=== PATIENT | male | born 1930 | race Caucasian/White ===

== ENCOUNTER 2018-11-25 14:30 | Emergency (ER) | payer OTHER ==
[~2018-11-25] VITALS: Ht 170.2 cm; Wt 90.9 kg
[~2018-11-25 14:30] MED LIST: ACET-2902 PO; ALFU10TA30 PO; AMOX250C4 PO; ASPI81 PO; CLAR500T3 PO; LOPE2 PO; OXYB5TAB PO; PANT40TA25 PO; PERCT PO; RANO500T3 PO; ZOLP5 PO
[2018-11-25 14:49] LABS: GLUCOSE,POINT OF CARE 112 MG/DL (70-110)
[2018-11-25] MEDS ORDERED: OMEP10 PO (14:52)
[2018-11-25] MEDS ORDERED: BACITRACIN 0.9 GM PACKET OINTMENT TP ONE (18:45)
[2018-11-25 19:08] VITALS: BP 120/56
== END 2018-11-25 19:17 | disposition home or self-care (01) ==
LOC: EMS 14:30
DX: S01.81XA Laceration without foreign body of other part of head, initial encounter (principal); S80.02XA Contusion of left knee, initial encounter; S80.01XA Contusion of right knee, initial encounter; H11.32 Conjunctival hemorrhage, left eye; I11.0 Hypertensive heart disease with heart failure; I50.9 Heart failure, unspecified; E78.00 Pure hypercholesterolemia, unspecified; K21.9 Gastro-esophageal reflux disease without esophagitis; Z88.2 Allergy status to sulfonamides; W01.0XXA Fall on same level from slipping, tripping and stumbling without subsequent striking against object, initial encounter; Y93.01 Activity, walking, marching and hiking; Y92.89 Other specified places as the place of occurrence of the external cause; Y99.8 Other external cause status
CPT/HCPCS: 12011; 70450; 70486

== ENCOUNTER 2018-12-28 12:30 | Inpatient (IN) | payer OTHER ==
[~2018-12-28] VITALS: Ht 170.2 cm; Wt 94.4 kg
[~2018-12-28 12:30] MED LIST changes: -AMOX250C4 PO; -ASPI81 PO; -CLAR500T3 PO; +OMEP10 PO; -OXYB5TAB PO; -PANT40TA25 PO; -PERCT PO; -ZOLP5 PO
[2018-12-28] MEDS ORDERED: ATOR40TA28 PO (12:48)
[2018-12-28] MEDS ORDERED: ALBU8.5H8 IH (12:48)
[2018-12-28] MEDS ORDERED: FURO40 PO (12:48)
[2018-12-28] MEDS ORDERED: KDUR10 PO (12:48)
[2018-12-28] MEDS ORDERED: METO-558 PO (12:48)
[2018-12-28] MEDS ORDERED: TICA90TA PO (12:48)
[2018-12-28] MEDS ORDERED: MAGOX PO (12:48)
[2018-12-28] MEDS ORDERED: ASPI81 PO (12:48)
[2018-12-28] MEDS ORDERED: ASPIRIN 81 MG CHEWABLE TABLET PO ONE (13:15)
[2018-12-28 13:41] LABS: BASOPHILS % (AUTO) 0.7 % (0.0-2.0); EOSINOPHILS % (AUTO) 5.6 % (1.0-6.0); HEMATOCRIT 33.9 % (41-53); HEMOGLOBIN 11.4 g/dL (13.5-17.5); LYMPHOCYTES # (AUTO) 0.8 K/uL (1.0-4.8); LYMPHOCYTES % (AUTO) 19.4 % (22.0-44.0); MEAN CORPUSCULAR HEMOGLOBIN 32.5 pg (26.0-34.0); MEAN CORPUSCULAR HGB CONC 33.8 G/dL (31.0-37.0); MEAN CORPUSCULAR VOLUME 96 fL (80-100); MONOCYTES # (AUTO) 0.4 K/uL (0.1-1.0); MONOCYTES % (AUTO) 8.9 % (2.0-9.0); NEUTROPHILS # (AUTO) 2.7 K/uL (1.8-7.7); NEUTROPHILS % (AUTO) 65.4 % (40.0-70.0); PLATELET COUNT (AUTO) 145 K/uL (150-450); RED BLOOD CELL COUNT(AUTO) 3.52 MIL/uL (4.50-5.90); RED CELL DISTRIBUTION WIDTH 14.8 % (11.5-14.5)
[2018-12-28 13:52] LABS: INR 0.9 (0.9-1.1); PROTHROMBIN TIME 9.8 SEC (9.4-11.6)
[2018-12-28 13:53] LABS: CALCIUM, TOTAL 8.6 mg/dL (8.8-10.5); CREATININE 1.5 mg/dL (0.60-1.30); POTASSIUM 4.1 mmol/L (3.5-5.1)
[2018-12-28 14:00] LABS: ALBUMIN 3.4 g/dL (3.4-5.0); BILIRUBIN,TOTAL 0.7 mg/dL (0.1-1.0); TOTAL PROTEIN, SERUM 6.7 g/dL (6.4-8.2)
[2018-12-28] MEDS ORDERED: MORPHINE SULFATE 2 MG/ML SYRINGE IVP PRN (15:30)
[2018-12-28] MEDS ORDERED: ZOLPIDEM TARTRATE 5 MG TABLET PO PRN (15:30)
[2018-12-28] MEDS ORDERED: BISACODYL 10 MG RECTAL RECTAL SUPPOSITORY PR PRN (15:30)
[2018-12-28] MEDS ORDERED: HYDROCODONE/ACETAMINOPHEN 5-325 MG TABLET PO PRN (15:30)
[2018-12-28] MEDS ORDERED: ACETAMINOPHEN 325 MG TABLET PO PRN (15:30)
[2018-12-28] MEDS ORDERED: MAGNESIUM HYDROXIDE SUSPENSION 30 ML UDCUP PO PRN (15:30)
[2018-12-28] MEDS ORDERED: ONDANSETRON HCL 4 MG/2 ML VIAL IVP PRN (15:30)
[2018-12-28] MEDS: NITROGLYCERIN 2% (1 GM=INCH) PACKET TP SCH (16:09)
[2018-12-28] MEDS: HEPARIN SODIUM,PORCINE 5,000 UNITS/ML VIAL SQ SCH ×2 (16:10→23:52)
[2018-12-28 17:54] VITALS: BP 132/73
[2018-12-28] MEDS ORDERED: FURO20 PO (18:03)
[2018-12-28] MEDS ORDERED: LISI-661 PO (18:03)
[2018-12-28] MEDS ORDERED: LORA10TA7 PO (18:03)
[2018-12-28] MEDS ORDERED: ALLO100T PO (18:03)
[2018-12-28 19:18] VITALS: BP 113/47
[2018-12-28 19:59] LABS: GLUCOSE,POINT OF CARE 84 MG/DL (70-110)
[2018-12-28] MEDS: TICAGRELOR 90 MG TABLET PO SCH (20:10)
[2018-12-28] MEDS: DOCUSATE SODIUM 100 MG CAPSULE PO SCH (20:10)
[2018-12-28 20:30] VITALS: BP 91/59
[2018-12-28 21:56] VITALS: BP 94/55
[2018-12-28] MEDS: RANOLAZINE 500 MG ER TABLET PO SCH (22:13)
[2018-12-29 00:04] VITALS: BP 108/55
[2018-12-29 04:26] VITALS: BP 99/52
[2018-12-29 06:47] LABS: EOSINOPHILS % (AUTO) 6.9 % (1.0-6.0); HEMATOCRIT 30.8 % (41-53); HEMOGLOBIN 10.9 g/dL (13.5-17.5); LYMPHOCYTES # (AUTO) 1.1 K/uL (1.0-4.8); LYMPHOCYTES % (AUTO) 28.5 % (22.0-44.0); MEAN CORPUSCULAR HEMOGLOBIN 33.3 pg (26.0-34.0); MEAN CORPUSCULAR HGB CONC 35.2 G/dL (31.0-37.0); MEAN CORPUSCULAR VOLUME 95 fL (80-100); MONOCYTES # (AUTO) 0.4 K/uL (0.1-1.0); MONOCYTES % (AUTO) 9.6 % (2.0-9.0); PLATELET COUNT (AUTO) 127 K/uL (150-450); RED BLOOD CELL COUNT(AUTO) 3.26 MIL/uL (4.50-5.90); RED CELL DISTRIBUTION WIDTH 14.7 % (11.5-14.5)
[2018-12-29 07:00] LABS: CALCIUM, TOTAL 8.5 mg/dL (8.8-10.5); CHOL/HDL RATIO 3.3 (4.2-7.3); CREATININE 1.4 mg/dL (0.60-1.30); POTASSIUM 4.3 mmol/L (3.5-5.1)
[2018-12-29 07:34] VITALS: BP 113/56
[2018-12-29] MEDS: HEPARIN SODIUM,PORCINE 5,000 UNITS/ML VIAL SQ SCH ×2 (08:00→16:49)
[2018-12-29] MEDS: NITROGLYCERIN 2% (1 GM=INCH) PACKET TP SCH ×3 (08:00→16:49)
[2018-12-29] MEDS: TICAGRELOR 90 MG TABLET PO SCH ×2 (08:43→20:13)
[2018-12-29] MEDS: DOCUSATE SODIUM 100 MG CAPSULE PO SCH ×2 (08:45→20:14)
[2018-12-29] MEDS: RANOLAZINE 500 MG ER TABLET PO SCH ×2 (09:00→20:14)
[2018-12-29] MEDS ORDERED: FUROSEMIDE 40 MG TABLET PO SCH (09:00)
[2018-12-29] MEDS ORDERED: METOPROLOL SUCCINATE 50 MG ER TABLET PO SCH (09:00)
[2018-12-29] MEDS ORDERED: ALFUZOSIN HCL 10 MG ER TABLET PO SCH (09:00)
[2018-12-29] MEDS ORDERED: ASPIRIN 81 MG CHEWABLE TABLET PO SCH (09:00)
[2018-12-29] MEDS ORDERED: ATORVASTATIN CALCIUM 40 MG TABLET PO SCH (09:00)
[2018-12-29] MEDS ORDERED: PANTOPRAZOLE SODIUM 40 MG DR TABLET PO SCH (09:00)
[2018-12-29 10:28] VITALS: BP 103/63
[2018-12-29 15:09] VITALS: BP 122/61
[2018-12-29] MEDS ORDERED: METO25XL PO (19:46)
[2018-12-29 20:09] VITALS: BP 114/61
== END 2018-12-29 20:50 | disposition home or self-care (01) | DRG 311 ==
LOC: EMS 12:33 → 5S 17:40
PROVIDERS: ADMIT Internal Medicine; ATTEND Internal Medicine
DX: I24.9 Acute ischemic heart disease, unspecified (principal); D61.818 Other pancytopenia; E78.00 Pure hypercholesterolemia, unspecified; I11.0 Hypertensive heart disease with heart failure; I50.9 Heart failure, unspecified; Z88.1 Allergy status to other antibiotic agents; K21.9 Gastro-esophageal reflux disease without esophagitis; I44.7 Left bundle-branch block, unspecified; K29.70 Gastritis, unspecified, without bleeding; I25.10 Atherosclerotic heart disease of native coronary artery without angina pectoris; E78.5 Hyperlipidemia, unspecified
CPT/HCPCS: 93005; 93306; G0378; J1644